=== PATIENT | female | born 1955 | race African-American/Black ===

== ENCOUNTER 2016-03-07 12:16 | Emergency (ER) | payer OTHER ==
[~2016-03-07] VITALS: Ht 162.6 cm; Wt 68.0 kg
[2016-03-07] MEDS ORDERED: NKM (12:25)
[2016-03-07] MEDS ORDERED: ASPIR 8181 MG ORAL (12:25)
[2016-03-07] MEDS ORDERED: Ipratropium 0.02% Inh Soln 2.5ml UD HHN ONE (13:00)
[2016-03-07] MEDS ORDERED: Albuterol ud Inhalation HHN ONE (13:00)
[2016-03-07 13:12] VITALS: BP 131/72
[2016-03-07] MEDS ORDERED: PROAIR HFA8.5 GM INH (13:32)
[2016-03-07] MEDS ORDERED: PREDNISONE20 M1 PO (13:32)
[2016-03-07] MEDS ORDERED: ROBITUSSIN COU118 M4 PO (13:32)
[2016-03-07 13:37] VITALS: BP 129/71
--- NOTE | 2016-03-07 14:45 | Emergency Room Report ---
History of Present Illness General Chief Complaint: Upper Respiratory Illness Source: Patient Present Illness [facility] The patient is a 60-year-old female with a stated history of asthma presenting for 2 weeks of subjective fever, productive cough, and chest congestion. Sputum is green. Pt denies recent travel or sick contacts.Pt denies any pain including CP. Pt denies STEEN, dizziness, weakness, blurred vision, N, V Despite what summary report states, pt does not mention anything regarding abd pain or blood in stool. Allergies: Coded Allergies: CODEINE (Verified Allergy, Unknown, 03/07/16) IODINE (Verified Allergy, Unknown, 03/07/16) PENICILLINS (Verified Allergy, Unknown, 03/07/16) Patient History Past Medical History: see triage record Pertinent Family History: none Reviewed Nursing Documentation: PMH: Agreed, PSxH: Agreed Nursing Documentation-PMH Past Medical History: No History, Except For Hx Asthma: Yes - BRONCHITIS Review of Systems All Other Systems: negative except mentioned in HPI Physical Exam Vital Signs Date Time Temp Pulse Resp B/P Pulse Ox O2 Delivery O2 Flow Rate FiO2 03/07/16 12:21 98.2 80 20 131/72 98 Room Air 03/07/16 13:10 21 Sp02 EP Interpretation: reviewed, normal General Appearance: no apparent distress, alert, GCS 15, non-toxic Head: normocephalic, atraumatic Eyes: bilateral eye PERRL, bilateral eye normal inspection ENT: hearing grossly normal, normal pharynx, no angioedema, normal voice, TMs + canals normal, uvula midline, moist mucus membranes Neck: full range of motion, supple/symm/no masses Respiratory: chest non-tender, no respiratory distress, no retraction, no accessory muscle use, wheezing - diffuse Cardiovascular #1: regular rate, rhythm, no edema Gastrointestinal: normal bowel sounds, non tender, soft, non-distended, no guarding, no rebound Genitourinary: normal inspection, no CVA tenderness Musculoskeletal: back normal, gait/station normal, normal range of motion, non- tender Neurologic: alert, oriented x3, responsive, motor strength/tone normal, sensory intact, speech normal Psychiatric: judgement/insight normal, memory normal, mood/affect normal, no suicidal/homicidal ideation Skin: normal color, no rash, warm/dry, well hydrated Lymphatic: no adenopathy Medical Decision Making PA Attestation Dr. Humphries is my supervising physician. Patient management was discussed with my supervising physician Diagnostic Impression: Primary Impression: Bronchitis ER Course The patient is a 60-year-old female with a stated history of asthma presenting for 2 weeks of subjective fever, productive cough, and chest congestion. Differential diagnosis include but not limited to pharyngitis, sinusitis, AOM, bronchitis, PNA PE: Vitals WNL. NAD HEENT unremarkable. Lungs: diffuse wheezing. The pt is given a breathing Tx and feels better. Lung sounds increased. Wheezing decreased. Pt will be ga'ed home with prescription for albuterol, prednisone, and cough medication. Pt will FU with PMD Last Vital Signs Date Time Temp Pulse Resp B/P Pulse Ox O2 Delivery O2 Flow Rate FiO2 03/07/16 13:37 98.2 69 20 129/71 100 Room Air 03/07/16 13:35 21 Status: improved Disposition: HOME, SELF-CARE Condition: Improved Scripts Prednisone (Prednisone) 20 Mg Tablet 20 MG PO DAILY, #5 TAB Prov: NASIMA KEVIN P.A. 03/07/16 Guaifenesin/Dextromethorphan (Robitussin Cough-Chest Dm Liq) 118 Ml Liquid 10 ML PO Q4HR, #118 ML Prov: JEREMYANNASIMA P.A. 03/07/16 Albuterol Sulfate* (PROAIR HFA*) 8.5 Gm Hfa.aer.ad 2 PUFFS INH Q6H, #8.5 GM 0 Refills Prov: JEREMYANPARVIZY P.A. 03/07/16 Referrals: Emil CARDOSO,REFERRING (PCP) Patient Instructions: Upper Respiratory Infection, Adult Additional Instructions: I discussed my findings with the patient. All questions and concerns have been answered. Treatment and medication compliance have been addressed. I advised the patient that they need to follow up with PMD in 3-5 days. Return to ED if pain remains or worsens, cough worsens or remains, you notice blood in your sputum, you notice wheezing, you experience a fever, or if needed for any reason. Patient verbalized understanding of discharge instructions. NASIMA KEVIN Mar 07, 2016 14:45
== END 2016-03-07 13:30 | disposition home or self-care (01) ==
LOC: EMR 13:05
DX: J20.9 Acute bronchitis, unspecified (principal); Z87.09 Personal history of other diseases of the respiratory system; Z88.6 Allergy status to analgesic agent; Z88.0 Allergy status to penicillin
CPT/HCPCS: 94640; 94664; 99283